=== PATIENT | female | born 1980 | race Two or more races ===

== ENCOUNTER 2017-02-12 18:18 | Emergency (ER) | payer MEDICAID ==
[~2017-02-12] VITALS: Ht 154.9 cm; Wt 69.9 kg
[~2017-02-12 18:18] MED LIST: IRON18TA
[2017-02-12 18:22] VITALS: BP 113/63
[2017-02-12] MEDS ORDERED: IBUPROFEN 400 MG TABLET ONE (18:59)
[2017-02-12] MEDS ORDERED: ACETAMINOPHEN ES 500 MG TABLET ONE (18:59)
[2017-02-12] MEDS ORDERED: IBUPROFEN 400 MG TABLET PO ONE (19:00)
[2017-02-12] MEDS ORDERED: ACETAMINOPHEN ES 500 MG TABLET PO ONE (19:00)
[2017-02-12 19:26] LABS: APPEARANCE,URINE Clear (CLEAR); BILIRUBIN,URINE Negative (NEGATIVE); BLOOD, URINE Negative Ery/uL (NEGATIVE); COLOR,URINE Yellow (YELLOW); KETONES,URINE Negative (NEGATIVE); LEUKOCYTE ESTERASE ,URINE Negative (NEGATIVE); NITRITE, URINE Negative (NEGATIVE); PH,URINE 5.5 (5.0-8.0); PROTEIN,URINE Negative (NEGATIVE); UGLUCOSE Negative (NEGATIVE); UROBILINOGEN,URINE 0.2 EU/dL (0.2)
[2017-02-12 19:33] LABS: PREGNANCY TEST URINE QUAL NEGATIVE (NEGATIVE)
== END 2017-02-12 19:47 | disposition home or self-care (01) ==
LOC: ER 18:20
DX: M54.2 Cervicalgia (principal); M25.512 Pain in left shoulder; V49.40XA Driver injured in collision with unspecified motor vehicles in traffic accident, initial encounter; Y93.89 Activity, other specified; Y92.89 Other specified places as the place of occurrence of the external cause; Y99.9 Unspecified external cause status
CPT/HCPCS: 81001; 84703; 99283; A4606; Z7610; 81000-TC